=== PATIENT | male | born 1995 | race Caucasian/White ===

== ENCOUNTER 2021-01-12 15:37 | Emergency (ER) | payer BC, SELFPAY ==
--- NOTE | 2021-01-12 15:41 | ED.EYEPROB ---
HPI - Eye Problem General Chief complaint: Eye Problems Stated complaint: eye redness Time Seen by Provider: 01/12/21 15:41 Source: patient and RN notes reviewed History of Present Illness HPI Narrative: Patient is a 25-year-old male who presents the urgent care with complaints of left eye redness, pain and itchiness. Patient states that he noticed it yesterday. Patient states that he immediately took out his contacts but has not done anything [id number] such as eyedrops. Patient denies of any known trauma or injury to the eye. Denies of any changes in vision. Denies of any fever, chills, nausea or vomiting. No other acute complaints. No acute distress noted. Patient aware of the plan of care. Some parts of this dictation were generated by voice recognition software and may contain typographical and/or grammatical inaccuracies. Related Data Allergies Allergy/AdvReac Type Severity Reaction Status Date / Time No Known Allergies Allergy Verified 01/12/21 15:45 Review of Systems Review of Systems: Narrative: CONSTITUTIONAL: Denies fever, chills, or sweats. EYES: Denies visual changes. Reports of left eye redness, itchiness and matting ENT: Denies rhinorrhea, congestion, sore throat, or otalgia. CARDIOVASCULAR: Denies chest pain, palpitations, or edema. RESPIRATORY: Denies cough or dyspnea. GASTROINTESTINAL: Denies abdominal pain, nausea, vomiting, or diarrhea. GENITOURINARY: Denies dysuria or hematuria. SKIN: Denies rash or itching. MUSCULOSKELETAL: Denies back pain, joint pain, or myalgia. NEUROLOGIC: Denies headache, numbness, or weakness. All other systems reviewed are negative, except as documented in HPI. PMFSH Comments At the time of my signature, I reviewed and agree with the nursing past medical, surgical, social, and family history. There is no relevant family history pertinent to the patient complaint. Exam Narrative: Exam Narrative: GENERAL: This is a well-nourished, well-developed patient, in no apparent distress. HEAD: normocephalic, atraumatic. EYES: PERRL. Sclera clear/white. Vision is grossly intact. Injected/erythemic left conjunctive a with erythemic sclera. Clear drainage from the left eye. Crusted yellow, likely impetigo, to the skin near the inner canthus of the left eye EARS: External ears normal NOSE: External nose normal with no obvious nasal discharge, nares without redness, no rhinorrhea. THROAT: Mucous membranes moist NECK: Neck supple SKIN: (see eye) warm, intact with no suspicious lesions or rash, good texture and turgor. NEURO: awake, alert, and oriented to person, place and time. There were no obvious focal neurologic abnormalities. EXTREMITIES: No clubbing, cyanosis, or edema. Course Vital Signs Vital signs: Vital Signs Temperature 98.1 F 01/12/21 15:44 Pulse Rate 66 01/12/21 15:44 Respiratory Rate 16 01/12/21 15:44 Blood Pressure 155/86 H 01/12/21 15:44 Pulse Oximetry 100 01/12/21 15:44 Temperature 98.1 F 01/12/21 15:44 Pulse Rate 66 01/12/21 15:44 Respiratory Rate 16 01/12/21 15:44 Blood Pressure 155/86 H 01/12/21 15:44 Pulse Oximetry 100 01/12/21 15:44 Reviewed-patient is informed that they may have pre-hypertension or hypertension based on a blood pressure reading in the department. I recommend the patient call the primary care provider listed on their discharge instructions or a physician of their choice this week to arrange follow-up for further evaluation of possible pre-hypertension or hypertension. MDM - Eye Problem MDM Narrative Medical decision making narrative: Advised the patient not to use a washcloth to wash the face. If you are using a towel to wipe your face, be sure to use a fresh towel each time. It appears you may have impetigo near the left eye which is a form of staph. Be sure not to rub the area and make sure you wash your hands after the use of eyedrops. Use the eyedrops to the affected eye as directed. Make sure to wipe
[2021-01-12 15:44] VITALS: BP 155/86; PULSE 66; RESP 16; TEMP 36.7; O2SAT 100
== END 2021-01-12 16:01 | disposition home or self-care (01) ==
PROVIDERS: Emergency Provider Nurse Practitioner Family
DX: L01.00 Impetigo, unspecified (principal); H10.89 Other conjunctivitis
CPT/HCPCS: 99203; G0463